=== PATIENT | male | born 1980 | race Hispanic/Latino ===

== ENCOUNTER 2024-01-21 20:24 | Emergency (ER) | payer SELFPAY ==
[2024-01-21] VITALS (9 sets, daily range): BP systolic 109–135; BP diastolic 59–78
[~2024-01-21] VITALS: Ht 170.2 cm; Wt 72.0 kg
[2024-01-21] MEDS ORDERED: cefTRIAXone SODIUM 2 GM in SODIUM CHLORIDE 0.9% 100 ML IV ONE (21:50)
[2024-01-21] MEDS ORDERED: MORPHINE SULFATE 4 MG/ML VIAL IV ONE (21:50)
[2024-01-21] MEDS ORDERED: KETOROLAC TROMETHAMINE 15 MG/ML SDV IV ONE (21:50)
[2024-01-21] MEDS ORDERED: ACETAMINOPHEN 500 MG TAB PO ONE (21:50)
[2024-01-21] MEDS ORDERED: SODIUM CHLORIDE 0.9% 1,000 ML IV ONE (21:50)
[2024-01-21] MEDS ORDERED: AMOX/K CLAV875 M1 PO (21:53)
== END 2024-01-21 23:22 | disposition home or self-care (01) | DRG 607 ==
LOC: ED 20:24
DX: R22.0 Localized swelling, mass and lump, head (principal); F17.210 Nicotine dependence, cigarettes, uncomplicated